=== PATIENT | female | born 1995 | race Caucasian/White ===

== ENCOUNTER 2021-01-08 02:07 | Emergency (ER) | payer OTHER ==
[2021-01-08] MEDS ORDERED: CYCLOBENZAPRINE10 MG PO (03:53)
[2021-01-08] MEDS ORDERED: NAPROSYN500 MG PO (03:53)
== END 2021-01-08 04:25 | disposition home or self-care (01) ==
LOC: ER1 02:07
DX: S39.012A Strain of muscle, fascia and tendon of lower back, initial encounter (principal); S29.012A Strain of muscle and tendon of back wall of thorax, initial encounter; S16.1XXA Strain of muscle, fascia and tendon at neck level, initial encounter; S80.02XA Contusion of left knee, initial encounter; E04.1 Nontoxic single thyroid nodule; I10 Essential (primary) hypertension; F17.200 Nicotine dependence, unspecified, uncomplicated; V49.40XA Driver injured in collision with unspecified motor vehicles in traffic accident, initial encounter; Y92.410 Unspecified street and highway as the place of occurrence of the external cause
CPT/HCPCS: 71045; 72125; 72128; 72131; 73564; 96372; 99285; J1885